=== PATIENT | female | born 1960 | race Two or more races ===

== ENCOUNTER 2024-03-20 06:40 | Day surgery (SDC) | payer BC, SELFPAY | END 2024-03-20 12:33 | disposition home or self-care (01) | LOC: GI 06:40 | PROVIDERS: ATTENDING PHYSICIAN Internal Medicine Gastroenterology | DX: Z12.11 Encounter for screening for malignant neoplasm of colon (principal); R19.5 Other fecal abnormalities; K57.30 Diverticulosis of large intestine without perforation or abscess without bleeding; D12.2 Benign neoplasm of ascending colon; D12.8 Benign neoplasm of rectum | CPT/HCPCS: 45385; 88305 ==